=== PATIENT | male | born 1985 | race Caucasian/White ===

== ENCOUNTER → 2017-12-27 | Outpatient (REF) | payer OTHER ==
[~2017-12-27] MED LIST: ALPR-429 PO; AMOX-559 PO; LORA-1456 PO
[2017-12-27 16:54] LABS: PLATELET COUNT, AUTOMATED 227 K/uL (150-450)
== END ==
PROVIDERS: ATTEND Nurse Practitioner Family
DX: I49.9 Cardiac arrhythmia, unspecified (principal); R50.9 Fever, unspecified
CPT/HCPCS: 82040; 82247; 82310; 82374; 82435; 82565; 82947; 84075; 84132; 84155; 84295; 84450; 84460; 84484; 84520; 85025

== ENCOUNTER 2017-12-28 00:10 | Emergency (ER) | payer OTHER ==
[~2017-12-28 00:10] MED LIST changes: -AMOX-559 PO
[2017-12-28] MEDS ORDERED: AMOX-559 PO (00:16)
--- NOTE | 2017-12-28 00:29 | ER Report ---
History and Physical Time Seen By MD: 00:29 Hx. of Stated Complaint: PT REPORTS HAVING AN ARHYTMIA. STATES THAT HE IS CURRENTLY BEING TREATED FOR STREP THROAT AND IS HAVING TROUBLE BREATHING. PT VITAL SIGNS ARE GROSSLY NORMAL. HPI/ROS CHIEF COMPLAINT: sore throat, palpitations and trouble breathing HISTORY OF PRESENT ILLNESS: This is a 32 year old male. He came to the ER tonight because of some palpitations and difficulty breathing. He has been sick for about a week with sore throat. Had negative strep, but providers placed him on antibiotics anyway. He has not felt like they are helping much, and was seen again and antibiotic changed. He felt like his throat was tight and short of breath tonight. Has a history of palpitations with his heart that has never been identified despite workup with EKG, echo, and further evaluation. [place] like he was having more palpitations as well. He is under alot of stress and considered that this could be anxiety related as well. Has been on medicine in the past for anxiety, but then weaned off and has been doing okay without. He has some chest pain to the left of the sternum that he can reproduce with pushing in the area. No nausea or vomiting. Not sleeping well. Allergies: Coded Allergies: No Known Drug Allergies (Unverified , 12/28/17) Home Meds Reported Medications Amoxicillin/Pot Clav 875-125 Mg Tab (AUGMENTIN 875-125 TABLET) 1 Each Tablet, 1 TAB PO Q12H, TAB 12/28/17 Discontinued Reported Medications Alprazolam (XANAX) 0.5 Mg Tablet, 0.25 TAB PO TID, TAB 01/03/16 Reviewed Nurses Notes: Yes Hx Smoking: No Smoking Status: Never Smoker Exposure to Second Hand Smoke?: No Hx Substance Use Disorder: No Constitutional Vital Sign - Last 24 Hours 12/28/17 12/28/17 12/28/17 12/28/17 00:15 00:16 00:30 01:00 Temp 98.2 Pulse 85 70 Resp 14 19 B/P (MAP) 142/90 (107) 142/90 127/76 (93) 122/70 (87) Pulse Ox 99 96 O2 Delivery Room Air 12/28/17 12/28/17 12/28/17 01:30 01:45 02:00 Pulse 66 64 70 Resp 19 19 22 B/P (MAP) 121/72 (88) Pulse Ox 95 89 96 Physical Exam General Appearance: The patient is alert. No acute distress, but is anxious. Non-toxic in appearance. Eyes: Pupils are equal, round. Reactive to light. No pallor, injection or icterus. Extraocular movements are intact. ENT: Mucous membranes are moist. Normal oral mucosa. Posterior oropharynx has erythema and some ulcers, but no hypertrophy or exudates. Neck: Supple and non tender. Has some anterior cervical and submandibular lymphadenopathy. Respiratory: Lungs are clear to auscultation. Cardiovascular: Regular rate and rhythm. No murmurs, gallops or rubs. Normal capillary refill. Gastrointestinal: Abdomen is soft and non tender. Nondistended. Normal active bowel sounds. Neurological: Alert and oriented x3. No focal neurologic deficits Skin: Warm and dry. Musculoskeletal: Some pain with palpation over the chest. DIFFERENTIAL DIAGNOSIS: After history and physical exam, differential diagnosis was considered for sore throat which could be incomplete treated strep but it is more likely a viral infection given his presentation and physical exam findings. He is very concerned about the shortness of breath and palpitations so we will do a couple of lab tests and chest x-ray as well although vital signs are stable and no sign of problem at this time. Medical Decision Making Data Points Result Diagram: 12/28/17 0049 12/28/17 0049 Laboratory Hematology Test 12/28/17 00:49 Red Blood Count 4.76 M/uL (4.00-5.60) Mean Corpuscular Volume 86.4 fL (80.0-96.0) Mean Corpuscular Hemoglobin 30.1 pg (26.0-33.0) Mean Corpuscular Hemoglobin Concent 34.8 g/dL (32.0-36.0) Red Cell Distribution Width 13.2 % (11.5-14.5) Mean Platelet Volume 7.7 fL (7.2-11.1) Neutrophils (%) (Auto) 71.8 % (39.4-72.5) Lymphocytes (%) (Auto) 14.7 % (17.6-49.6) Monocytes (%) (Auto) 12.8 % (4.1-12.4) Eosinophils (%) (Auto) 0.0 % (0.4-6.7) Basophils (%) (Auto) 0.7 % (0.3-1.4) Nucleated RBC Relative Count (auto) 0.0 /100WBC Neutrophils # (Auto) 4.9 K/uL (2.0-7.4) Lymphocytes # (Auto) 1.0 K/uL (1.3-3.6) Monocytes # (Auto) 0.9 K/uL (0.3-1.0) Eosinophils # (Auto) 0.0 K/uL (0.0-0.5) Basophils # (Auto) 0.0 K/uL (0.0-0.1) Nucleated RBC Absolute Count (auto) 0.00 K/uL Sodium Level 135 mmol/L (137-145) Potassium Level 3.5 mmol/L (3.5-5.0) Chloride Level 103 mmol/L (98-107) Carbon Dioxide Level 21 mmol/L (22-30) Blood Urea Nitrogen 5 mg/dl (9-21) Creatinine 0.70 mg/dl (0.66-1.25) Glomerular Filtration Rate Calc > 60.0 Random Glucose 100 mg/dl (75-110) Calcium Level 8.3 mg/dl (8.4-10.2) Total Bilirubin 0.3 mg/dl (0.2-1.3) Aspartate Amino Transf (AST/SGOT) 17 U/L (0-35) Alanine Aminotransferase (ALT/SGPT) 24 U/L (0-56) Alkaline Phosphatase 51 U/L (0-126) Total Protein 6.5 gm/dl (6.3-8.2) Albumin 3.6 g/dl (3.5-5.0) Monoscreen Negative (NEGATIVE) Influenza Virus Type A (PCR) Negative (NEGATIVE) Influenza Virus Type B (PCR) Negative (NEGATIVE) Chemistry Test 12/28/17 00:49 White Blood Count 6.9 k/uL (4.5-11.0) Red Blood Count 4.76 M/uL (4.00-5.60) Hemoglobin 14.3 g/dL (14.0-18.0) Hematocrit 41.2 % (42.0-52.0) Mean Corpuscular Volume 86.4 fL (80.0-96.0) Mean Corpuscular Hemoglobin 30.1 pg (26.0-33.0) Mean Corpuscular Hemoglobin Concent 34.8 g/dL (32.0-36.0) Red Cell Distribution Width 13.2 % (11.5-14.5) Platelet Count 208 K/uL (150-450) Mean Platelet Volume 7.7 fL (7.2-11.1) Neutrophils (%) (Auto) 71.8 % (39.4-72.5) Lymphocytes (%) (Auto) 14.7 % (17.6-49.6) Monocytes (%) (Auto) 12.8 % (4.1-12.4) Eosinophils (%) (Auto) 0.0 % (0.4-6.7) Basophils (%) (Auto) 0.7 % (0.3-1.4) Nucleated RBC Relative Count (auto) 0.0 /100WBC Neutrophils # (Auto) 4.9 K/uL (2.0-7.4) Lymphocytes # (Auto) 1.0 K/uL (1.3-3.6) Monocytes # (Auto) 0.9 K/uL (0.3-1.0) Eosinophils # (Auto) 0.0 K/uL (0.0-0.5) Basophils # (Auto) 0.0 K/uL (0.0-0.1) Nucleated RBC Absolute Count (auto) 0.00 K/uL Glomerular Filtration Rate Calc > 60.0 Calcium Level 8.3 mg/dl (8.4-10.2) Total Bilirubin 0.3 mg/dl (0.2-1.3) Aspartate Amino Transf (AST/SGOT) 17 U/L (0-35) Alanine Aminotransferase (ALT/SGPT) 24 U/L (0-56) Alkaline Phosphatase 51 U/L (0-126) Total Protein 6.5 gm/dl (6.3-8.2) Albumin 3.6 g/dl (3.5-5.0) Monoscreen Negative (NEGATIVE) Influenza Virus Type A (PCR) Negative (NEGATIVE) Influenza Virus Type B (PCR) Negative (NEGATIVE) EKG/Imaging Imaging CHEST PA AND LAT HISTORY: Difficulty breathing. COMPARISON: 01/03/2016. FINDINGS: PA and lateral views of the chest are submitted. Lines/tubes: None. Lungs/pleura: Negative. Heart: Negative. Mediastinum: Negative. Bony structures/body wall: Negative. IMPRESSION: No acute cardiopulmonary process. Report Dictated By: Larry Swan MD at 12/28/2017 1:25 AM ED Course/Re-evaluation Clinical Indication for ER IV: IV Access ED Course Labs negative for Martin and influenza. CBC and CMP unremarkable. Chest x-ray negative as noted. Discussed with the patient that hear monitor has shown no ectopy. We provided a dose of Ativan 0.5mg as noted below to take to help with sleep and to help with anxiety. Decision to Disposition Date: Dec 28, 2017 Decision to Disposition Time: 01:59 Depart Departure Latest Vital Signs Vital Signs Date Time Temp Pulse Resp B/P (MAP) Pulse Ox O2 Delivery O2 Flow Rate FiO2 12/28/17 02:00 70 22 96 12/28/17 01:30 121/72 (88) 12/28/17 00:16 98.2 Room Air Impression: Primary Impression: Acute pharyngitis Additional Impressions: Shortness of breath Palpitations Condition: Improved Disposition: HOME OR SELF-CARE Patient Instructions: Palpitations (ED), Pharyngitis (ED) Additional Instructions: Consider follow-up with primary care or cardiology for re-evaluation. Finish your antibiotics. The over the counter medicines that you are using are fine to continue. We will provide a 0.5mg tablet of Ativan (lorazepam). Take 1/4 or 1/2 tablet tonight to help with stress and sleep. Problem Qualifiers Primary Impression: Acute pharyngitis Pharyngitis/tonsillitis etiology: unspecified etiology Qualified Codes: J02.9 - Acute pharyngitis, unspecified SANDRO BYRNE MD Dec 28, 2017 00:29
[2017-12-28 01:02] LABS: PLATELET COUNT, AUTOMATED 208 K/uL (150-450)
[2017-12-28 01:30] VITALS: BP 121/72
--- NOTE | 2017-12-28 01:32 | RADIOLOGY IMAGING REPORT ---
FACILITY: [facility] PATIENT NAME: Tyler Enriquez : 1985 MR: [id number] V: [id number] EXAM DATE: ORDERING PHYSICIAN: SANDRO BYRNE TECHNOLOGIST: Location: [facility] Patient: Tyler Enriquez : 1985 Visit/Account:[id number] Date of Sevice: 12/28/2017 CHEST PA AND LAT HISTORY: Difficulty breathing. COMPARISON: 01/03/2016. FINDINGS: PA and lateral views of the chest are submitted. Lines/tubes: None. Lungs/pleura: Negative. Heart: Negative. Mediastinum: Negative. Bony structures/body wall: Negative. IMPRESSION: No acute cardiopulmonary process. Report Dictated By: Larry Swan MD at 12/28/2017 1:25 AM Report E-Signed By: Larry Swan MD at 12/28/2017 1:27 AM [id number]
[2017-12-28] MEDS ORDERED: LORazepam 0.5 MG TAB PO ONE (02:05)
== END 2017-12-28 02:09 | disposition home or self-care (01) ==
LOC: ER 00:31
DX: J02.9 Acute pharyngitis, unspecified (principal); R06.02 Shortness of breath; R00.2 Palpitations
CPT/HCPCS: 71046; 82040; 82247; 82310; 82374; 82435; 82565; 82947; 84075; 84132; 84155; 84295; 84450; 84460; 84520; 85025; 86308; 87502; 99284